=== PATIENT | male | born 1965 ===

== ENCOUNTER 2016-06-03 22:12 | Emergency (ER) | payer SELFPAY ==
[2016-06-03 22:13] VITALS: BMI 26.8
[2016-06-03 22:26] VITALS: RESP 18
[2016-06-03] MEDS ORDERED: Sodium Chloride 0.9% 1,000 ML IV ONE (23:20)
--- NOTE | 2016-06-03 23:37 | C.PDOC ---
History Of Present Illness 50 year old male with a history of colon cancer and currently on chemotherapy, presents to the ED with complaints of rectal burning for the past 4 days. Patient denies fever, chills, nausea, vomiting, constipation, or any other complaints at this time. Time Seen by Provider: 06/03/16 23:18 Chief Complaint (Nursing): GI Problem History Per: Patient History/Exam Limitations: no limitations Onset/Duration Of Symptoms: Days Current Symptoms Are (Timing): Still Present Severity: Mild Past Medical History Reviewed: Historical Data, Nursing Documentation, Vital Signs Vital Signs: Last Vital Signs Temp 98.5 F 06/04/16 01:00 Pulse 82 06/04/16 01:00 Resp 18 06/04/16 01:00 BP 129/78 06/04/16 01:00 Pulse Ox 95 06/04/16 01:27 - Medical History PMH: Malignancy (Colon cancer) Surgical History: Appendectomy (10/2015) Family History: States: Unknown Family Hx - Social History Hx Alcohol Use: No Hx Substance Use: No - Immunization History Hx Tetanus Toxoid Vaccination: No Hx Influenza Vaccination: No Hx Pneumococcal Vaccination: No Review Of Systems Except As Marked, All Systems Reviewed And Found Negative. Constitutional: Negative for: Fever, Chills Gastrointestinal: Positive for: Rectal Pain (+Rectal burning). Negative for: Nausea, Vomiting, Abdominal Pain, Diarrhea, Constipation, Melena Genitourinary: Negative for: Dysuria, Frequency Musculoskeletal: Negative for: Back Pain Physical Exam - Physical Exam Appears: Non-toxic, No Acute Distress Skin: Normal Color, Warm, Dry Head: Atraumatic, Normacephalic Eye(s): bilateral: Normal Inspection Oral Mucosa: Moist Chest: Symmetrical Cardiovascular: Rhythm Regular Respiratory: Normal Breath Sounds, No Accessory Muscle Use Gastrointestinal/Abdominal: Soft, Tenderness (+Non-focal tenderness), No Distention, No Guarding, No Rebound Rectal: Other (No external lesions) Extremity: Normal ROM Neurological/Psych: Oriented x3, Normal Speech, Normal Cognition ED Course And Treatment - Laboratory Results Result Diagrams: 06/03/16 23:34 06/03/16 23:34 O2 Sat by Pulse Oximetry: 95 (Room air) Pulse Ox Interpretation: Normal Medical Decision Making Medical Decision Making: Plan: -CT ABD & Pelvis w/contrast -Blood work -Urinalysis -Toradol -IV fluids -reassess Progress: 125: pt reassesed. abd soft. no ttp. ct neg for acute disease. labs unremarkable. pt states feels well for d/c. advise outpt f/u and return precautions. noted mild thrombocytopenia, suspected 2/2 chemo. no bleeding. h/h stable Disposition - Disposition Referrals: Rudy Nicolas MD [Primary Care Provider] - Matty Cisneros MD [Staff Provider] - Disposition: HOME/ ROUTINE Disposition Time: 01:26 Condition: STABLE Additional Instructions: please see your doctor. return to er with worsening symptoms or concerns. Instructions: Acute Abdominal Pain (ED) Print Language: ROMANIAN - Clinical Impression Clinical Impression: Abdominal pain, Rectal pain - Scribe Statement The provider has reviewed the documentation as recorded by the Scribe Israel Rod. Provider Attestation: All medical record entries made by the Scribe were at my direction and personally dictated by me. I have reviewed the chart and agree that the record accurately reflects my personal performance of the history, physical exam, medical decision making, and the department course for this patient. I have also personally directed, reviewed, and agree with the discharge instructions and disposition.
[2016-06-03 23:43] LABS: BASO % 0.4 % (0.0-2.0); EOS % 0.4 % (0.0-4.0); HEMATOCRIT 40.4 % (35.0-51.0); LYMPH # 2.9 K/uL (1.0-4.3); LYMPH % 51.1 % (20.0-40.0); MEAN CELL VOLUME 87.8 fL (80.0-94.0); MEAN CORPUSCULAR HEMOGLOBIN 28.4 pg (27.0-31.0); MEAN CORPUSCULAR HGB CONC 32.3 g/dL (33.0-37.0); MEAN PLATELET VOLUME 8.4 fL (7.2-11.7); MONO # 0.8 K/uL (0.0-0.8); MONO % 13.7 % (0.0-10.0); NRBC % 0.1 % (0.0-2.0); RED CELL DISTRIBUTION WIDTH 19.2 % (11.5-14.5); WHITE BLOOD COUNT 5.7 K/uL (4.8-10.8)
[2016-06-03 23:45] LABS: CHLORIDE 99 mmol/L (98-107)
[2016-06-03 23:46] LABS: INR 1.1; SODIUM 136 mmol/L (132-148)
[2016-06-03 23:48] LABS: ALB/GLOB RATIO 1.1 (1.0-2.1); ALKALINE PHOSPHATASE 85 U/L (38-126); ALT/SGPT 65 U/L (21-72); AST/SGOT 52 U/L (17-59); BILIRUBIN,TOTAL 0.7 mg/dL (0.2-1.3); BLOOD UREA NITROGEN 7 mg/dL (9-20); CARBON DIOXIDE 23 mmol/L (22-30); GFR AFRICAN-AMERICAN > 60; GLUCOSE,RANDOM 128 mg/dL (75-110); TOTAL PROTEIN 8.4 g/dL (6.3-8.3)
[2016-06-03 23:49] LABS: CALCIUM 9.1 mg/dl (8.6-10.4)
[2016-06-03 23:54] LABS: POTASSIUM 3.7 mmol/L (3.6-5.2)
[2016-06-04 00:54] LABS: RBC URINE 1 /hpf (0-3); URINE BILIRUBIN NEGATIVE (NEGATIVE); URINE BLOOD NEGATIVE (NEGATIVE); URINE COLOR Yellow (YELLOW); URINE GLUCOSE (UA) NORMAL (Normal); URINE KETONE NEGATIVE (NEGATIVE); URINE LEUKOCYTE ESTERASE NEG Leu/uL (Negative); URINE PROTEIN NEGATIVE (NEGATIVE); URINE UROBILINOGEN NORMAL mg/dL (0.2-1.0); WBC URINE < 1 /hpf (0-5)
--- NOTE | 2016-06-04 01:20 | CT ---
EXAM: CT Abdomen and Pelvis With Intravenous Contrast. CLINICAL HISTORY: 50 years old, male; Pain; Abdominal pain and other: Abd/rectal pain h/o of colon ca; Prior surgery; Surgery type: Appendectomy; Patient HX: 02-05-16 TECHNIQUE: Axial computed tomography images of the abdomen and pelvis with intravenous contrast. This CT exam was performed using one or more of the following dose reduction techniques: automated exposure control, adjustment of the mA and/or kV according to patient size, and/or use of iterative reconstruction technique. Coronal and sagittal reformatted images were created and reviewed. CONTRAST: 100 mL of alreocjor167 administered intravenously. EXAM DATE/TIME: 06/03/2016 11:21 PM COMPARISON: There are no prior studies for comparison. FINDINGS: Lower thorax: There is streak artifact from a central line tip at cavoatrial junction. Heart size is normal. Distal esophagus is unremarkable. Lung bases are hyperinflated. There is scarring at the lung bases. There is nodular pleural thickening and scarring at both lung bases. ABDOMEN: Liver: There is fatty infiltration of the liver. There is a small calcification in the liver. Gallbladder and bile ducts: Gallbladder is collapsed. Common bile duct is unremarkable. Pancreas: unremarkable Spleen: unremarkable Adrenals: unremarkable Kidneys and ureters: unremarkable Stomach and bowel: Stomach is partially distended with an air-fluid level. Rotation is normal. There is no obstruction. There is been partial right colectomy. There is an ileocolic anastomosis in the right flank. There are multiple clips in the right flank. There is moderate stool in the colon. There is diverticulosis. Appendix: See above. PELVIS: Bladder: Bladder is partially distended. There is mild bladder wall thickening. Reproductive: Prostate is enlarged.Seminal vesicles have the expected configuration. ABDOMEN and PELVIS: Intraperitoneal space: There is no free fluid. There is no free air. Bones/joints: There are degenerative changes in the osseus structures. Soft tissues: There are fat containing inguinal hernias. There is a small fat-containing umbilical hernia. Vasculature: Vascular structures are unremarkable. Lymph nodes: There is no pathologic adenopathy. IMPRESSION: Partial right colectomy with ileocolic anastomosis in the right flank, no obstruction; possible constipation; diverticulosis without CT findings of diverticulitis; the no acute solid visceral abnormality Additional findings as described above.
[2016-06-04 01:21] VITALS: BP 129/78; PULSE 82; TEMP 98.5
[2016-06-04 01:27] VITALS: O2SAT 95
[2016-06-04] MEDS ORDERED: Sodium Chloride 0.9% 500 ML IV SCH (09:45)
[2016-06-04] MEDS ORDERED: Sodium Chloride 0.9% 500 ML IV ONE (10:15)
== END 2016-06-04 01:56 | disposition home or self-care (01) ==
LOC: SUPCPDRO 22:12 → C.ER 22:12
DX: K62.89 Other specified diseases of anus and rectum (principal)
CPT/HCPCS: 74177; 80053; 81001; 83690; 85025; 85610; 85730; 96361; 96374; 99284; J1885; J7040

== ENCOUNTER 2017-05-27 18:08 | Emergency (ER) | payer OTHER ==
[2017-05-27 18:19] VITALS: BMI 25.7
[2017-05-27] MEDS ORDERED: Sodium Chloride 0.9% 1,000 ML IV ONE (19:14)
[2017-05-27 19:26] LABS: BASO % 0.3 % (0.0-2.0); EOS # 0.1 K/uL (0.0-0.7); EOS % 1.4 % (0.0-4.0); HEMOGLOBIN 13.8 g/dL (12.0-18.0); LYMPH # 3.3 K/uL (1.0-4.3); LYMPH % 38.9 % (20.0-40.0); MEAN CELL VOLUME 86.2 fL (80.0-94.0); MEAN CORPUSCULAR HEMOGLOBIN 29.1 pg (27.0-31.0); MEAN CORPUSCULAR HGB CONC 33.7 g/dL (33.0-37.0); MEAN PLATELET VOLUME 7.8 fL (7.2-11.7); MONO # 0.5 K/uL (0.0-0.8); MONO % 5.7 % (0.0-10.0); NEUT # 4.6 K/uL (1.8-7.0); NEUT % 53.7 % (50.0-75.0); NRBC % 0.1 % (0.0-2.0); RBC 4.74 Mil/uL (4.40-5.90); RED CELL DISTRIBUTION WIDTH 14.7 % (11.5-14.5); WHITE BLOOD COUNT 8.6 K/uL (4.8-10.8)
[2017-05-27] MEDS ORDERED: Sodium Chloride 0.9% 1,000 ML ONE (19:27)
[2017-05-27 19:35] LABS: URINE BILIRUBIN NEGATIVE (NEGATIVE); URINE BLOOD NEGATIVE (NEGATIVE); URINE CLARITY Clear (Clear); URINE COLOR Yellow (YELLOW); URINE GLUCOSE (UA) NORMAL (Normal); URINE LEUKOCYTE ESTERASE NEG Leu/uL (Negative); URINE PROTEIN NEGATIVE (NEGATIVE); URINE UROBILINOGEN NORMAL mg/dL (0.2-1.0)
[2017-05-27 19:39] LABS: ALB/GLOB RATIO 1.1 (1.0-2.1); ALBUMIN 4.2 g/dL (3.5-5.0); ALT/SGPT 30 U/L (21-72); AST/SGOT 30 U/L (17-59); BLOOD UREA NITROGEN 13 mg/dL (9-20); CALCIUM 8.8 mg/dl (8.6-10.4); GFR AFRICAN-AMERICAN > 60; GFR NON-AFRICAN AMERICAN > 60; LIPASE 109 U/L (23-300)
[2017-05-27] MEDS ORDERED: Iohexol 300 100 ML IJ ONE (20:22)
[2017-05-27 20:54] VITALS: RESP 16
--- NOTE | 2017-05-27 21:39 | CT ---
EXAM: CT Abdomen and Pelvis With Intravenous Contrast CLINICAL HISTORY: 51 years old, male; Pain; Abdominal pain; Other: Pelvic/rectal; Additional info: Pelvic/rectal pain, h/o colon ca TECHNIQUE: Axial computed tomography images of the abdomen and pelvis with intravenous contrast. All CT scans at this facility use one or more dose reduction techniques, viz.: automated exposure control; ma/kV adjustment per patient size (including targeted exams where dose is matched to indication; i.e. head); or iterative reconstruction technique. Coronal and sagittal reformatted images were created and reviewed. CONTRAST: 100 mL of omnipaque 300 administered intravenously. COMPARISON: CT - CHEST,ABD,PEL W/IV PO CONTRAST 2017-02-09 13:28 FINDINGS: Limitations: Motion artifact - mild. Lower thorax: Minimal atelectasis/scarring. 0.2 cm left upper lobe nodule, stable. ABDOMEN: Liver: < 0.5 cm lesion, stable. Small calcification. Gallbladder and bile ducts: No calcified stones. No ductal dilation. Pancreas: No ductal dilation. No mass. Spleen: No splenomegaly. Adrenals: No mass. Kidneys and ureters: Too small to characterize lesion within LEFT kidney. No hydronephrosis. Stomach and bowel: Partial colectomy. No definite mural thickening. No obstruction. Appendix: Appendectomy. PELVIS: Bladder: Unremarkable. Reproductive: Unremarkable as visualized. ABDOMEN and PELVIS: Intraperitoneal space: No significant fluid collection. No free air. Bones/joints: Probable bone island within right ilium, stable. Probable cyst within left ilium, stable. Mild degenerative changes of spine and left hip joint. No acute fracture. Soft tissues: Small inguinal hernias containing fat. Vasculature: Minimal atherosclerotic disease of aorta. No aneurysm. Lymph nodes: Few subcentimeter short axis mesenteric lymph nodes. IMPRESSION: 1. No definite acute intraabdominal abnormality. 2. Liver lesion. For patients with low to average risk of malignancy, no further follow-up is necessary. For patients with high risk of malignancy (known malignancy that can metastasize or other risk factors), recommend follow-up abdominal CT or MR in 6 months. 3. Incidental/non-acute findings are described above.
--- NOTE | 2017-05-27 21:42 | C.PDOC ---
History Of Present Illness 51 year old male, whose PMHx includes colon cancer without resection and a complicated appendectomy, presents to the ED for evaluation of rectal pain which began around 4 days ago. He denies fever, chills. Time Seen by Provider: 05/27/17 19:00 Chief Complaint (Nursing): Abdominal Pain History Per: Patient History/Exam Limitations: no limitations Onset/Duration Of Symptoms: Days (4) Current Symptoms Are (Timing): Still Present Quality Of Discomfort: "Pain" Associated Symptoms: denies: Fever, Chills Additional History Per: Patient Past Medical History Reviewed: Historical Data, Nursing Documentation, Vital Signs Vital Signs: Last Vital Signs Temp 98.1 F 05/27/17 20:53 Pulse 61 05/27/17 20:53 Resp 16 05/27/17 20:53 BP 110/60 05/27/17 20:53 Pulse Ox 98 05/27/17 21:55 - Medical History PMH: Malignancy (Colon cancer) Denies: Chronic Kidney Disease Surgical History: Appendectomy (10/2015) Family History: States: Unknown Family Hx - Social History Hx Alcohol Use: No Hx Substance Use: No - Immunization History Hx Tetanus Toxoid Vaccination: No Hx Influenza Vaccination: No Hx Pneumococcal Vaccination: No Review Of Systems Constitutional: Negative for: Fever, Chills Gastrointestinal: Positive for: Rectal Pain Physical Exam - Physical Exam Appears: Non-toxic, No Acute Distress, Chronically Ill Skin: Warm, Dry, Pale Head: Atraumatic, Normacephalic Eye(s): bilateral: Normal Inspection Oral Mucosa: Moist Neck: Supple Chest: Symmetrical, No Deformity, No Tenderness Cardiovascular: Rhythm Regular, No Murmur Respiratory: Normal Breath Sounds, No Rales, No Rhonchi, No Wheezing Gastrointestinal/Abdominal: No Guarding, No Rebound, Other (dull to percussion throughout ) Rectal: Other (deferred ) Extremity: Normal ROM, Capillary Refill (less than 2 seconds ) Neurological/Psych: Oriented x3, Normal Speech, Normal Cognition Gait: Steady ED Course And Treatment - Laboratory Results Result Diagrams: 05/27/17 19:23 05/27/17 19:23 Lab Interpretation: Normal (UA neg.) O2 Sat by Pulse Oximetry: 98 (on RA) Pulse Ox Interpretation: Normal - Radiology CXR: Interpreted by Sc CXR Interpretation: Yes: No Acute Disease - CT Scan/US CT abd/Pelvis Other Rad Studies (CT/US): Interpreted By Me (+FOS, no obst, R partial colectomy , small liver lesion) Progress Note: Bloodwork, urinalysis, and CT A/P ordered and reviewed. Toradol IVP and IV fluids administered. Reevaluation Time: 22:01 Reassessment Condition: Improved Medical Decision Making Medical Decision Making: no acute CA related issues. Constipation d/w Dr. Stevo Nicolas @ 2200: ok to d/c home w laxative and opt f/u. Disposition Doctor Will See Patient In The: Office Counseled Patient/Family Regarding: Studies Performed, Diagnosis - Disposition Disposition: HOME/ ROUTINE Disposition Time: 22:02 Condition: GOOD Forms: [employer] [employer] (Romanian) - Clinical Impression Clinical Impression: Abdominal colic - Scribe Statement The provider has reviewed the documentation as recorded by the Scribe (Cori Rodriguez) Provider Attestation: All medical record entries made by the Scribe were at my direction and personally dictated by me. I have reviewed the chart and agree that the record accurately reflects my personal performance of the history, physical exam, medical decision making, and the department course for this patient. I have also personally directed, reviewed, and agree with the discharge instructions and disposition.
--- NOTE | 2017-05-27 21:55 | C.PDOC ---
Time Seen by Provider: 05/27/17 19:00 Chief Complaint (Nursing): Abdominal Pain Past Medical History Vital Signs: Last Vital Signs Temp 98.1 F 05/27/17 20:53 Pulse 61 05/27/17 20:53 Resp 16 05/27/17 20:53 BP 110/60 05/27/17 20:53 Pulse Ox 98 05/27/17 20:53 - Medical History PMH: Malignancy (Colon cancer) Denies: Chronic Kidney Disease Surgical History: Appendectomy (10/2015) Family History: States: Unknown Family Hx - Social History Hx Alcohol Use: No Hx Substance Use: No - Immunization History Hx Tetanus Toxoid Vaccination: No Hx Influenza Vaccination: No Hx Pneumococcal Vaccination: No ED Course And Treatment - Laboratory Results Result Diagrams: 05/27/17 19:23 05/27/17 19:23 O2 Sat by Pulse Oximetry: 98 Disposition - Disposition
[2017-05-27 22:11] VITALS: BP 129/72; PULSE 70; TEMP 98.4; O2SAT 97
== END 2017-05-27 22:12 | disposition home or self-care (01) ==
LOC: C.ER 18:08
DX: R10.84 Generalized abdominal pain (principal)
CPT/HCPCS: 74177; 80053; 81001; 83690; 85025; 96361; 96374; 99285; J1885; J7040; Q9967